=== PATIENT | male | born 1975 | race Caucasian/White ===

== ENCOUNTER 2021-06-15 09:49 | Emergency (ER) | payer OTHER, BC, SELFPAY ==
[2021-06-15 10:00] VITALS: BP 176/113; PULSE 76; RESP 14; TEMP 36.1; O2SAT 99
[2021-06-15] MEDS: TETANUS,DIPHTHERIA,AC PERTUSSIS ADULT (0.5 ML) BOOSTRIX IM (10:30)
--- NOTE | 2021-06-15 10:49 | ED.GENADULT ---
HPI - General Adult General Chief complaint: Wound/Laceration Stated complaint: Laceration Time Seen by Provider: 06/15/21 10:04 Source: patient Mode of arrival: ambulatory Limitations: no limitations History of Present Illness HPI narrative: Patient presents with chief complaint of laceration to the left thumb but he should stay prior to arrival at work on a can. He states he has not had a tetanus shot in 10 years. Patient denies any other symptoms or injuries. Related Data Home Medications Medication Instructions Recorded Confirmed gabapentin 300 mg PO TID 06/15/21 propranolol 10 mg PO Q12H 06/15/21 venlafaxine [Effexor XR] 75 mg PO DAILY 06/15/21 Allergies Allergy/AdvReac Type Severity Reaction Status Date / Time No Known Allergies Allergy Verified 06/15/21 10:02 Review of Systems Review of Systems: CONSTITUTIONAL: Denies fever, chills, or sweats. EYES: Denies visual changes, redness, or discharge. ENT: Denies rhinorrhea, congestion, sore throat, or otalgia. CARDIOVASCULAR: Denies chest pain, palpitations, or edema. RESPIRATORY: Denies cough or dyspnea. GASTROINTESTINAL: Denies abdominal pain, nausea, vomiting, or diarrhea. GENITOURINARY: Denies dysuria or hematuria. SKIN: Reports laceration denies rash or itching. MUSCULOSKELETAL: Denies back pain, joint pain, or myalgia. NEUROLOGIC: Denies headache, numbness, dizziness, or weakness. PSYCHIATRIC: Denies anxiety or depression. PMFSH Social History Social History Alcohol intake: current Exam Narrative: GENERAL: Well-appearing, well-nourished, and in no acute distress. HEAD: Normocephalic, atraumatic. EYES: PERRLA and EOMI. CHEST: Clear to auscultation. No respiratory distress. No wheezes rales or rhonchi HEART: Regular rate and rhythm. EXTREMITIES: Normal range of motion. No edema. SKIN: 2.5cm laceration to left thumb. Can't appreciate any foreign bodies. Warm, dry, no rash. NEURO: No focal deficits. Alert and oriented x3. PSYCH: Normal mood and affect. Course Vital Signs Vital signs: Vital Signs Temperature 96.9 F L 06/15/21 10:00 Pulse Rate 76 06/15/21 10:00 Respiratory Rate 14 06/15/21 10:00 Blood Pressure 176/113 H 06/15/21 10:00 Pulse Oximetry 99 06/15/21 10:00 Temperature 96.9 F L 06/15/21 10:00 Pulse Rate 76 06/15/21 10:00 Respiratory Rate 14 06/15/21 10:00 Blood Pressure 176/113 H 06/15/21 10:00 Pulse Oximetry 99 06/15/21 10:00 Procedures Laceration Laceration 1: Site: hand Side (If applicable): left Size (cm): 2.5 Description: linear Depth: simple, single layer Local Anesthetic: lidocaine 1% Amount of anesthesia used (mL): 1 Pre-repair: irrigated extensively ====== Skin Level ====== Skin layer closed with: nylon Size (cm): 4-0 Number of sutures: 3 Technique: simple, interrupted ====== Subcutaneous Layer ====== ====== Muscle Layer ====== ====== Tendon Layer ====== Dressing: Wound repair. Patient tolerated procedure well. Patient instructed on need for follow-up for suture removal. Medical Decision Making MDM Narrative Medical decision making narrative: There is no bony tenderness. Laceration repaired well. Patient blood pressure was elevated. States due to the laceration and having to have sutures. Patient notified. Patient does not have any headache, neurological deficit or cardiac pain. Patient instructed on the need for follow-up. Patient given wound care instructions. Patient instructed to go home and rest. Nursing did not obtain blood pressure rechecked prior to discharging the patient. Vital Signs Vital Signs: Vital Signs Temperature 96.9 F L 06/15/21 10:00 Pulse Rate 76 06/15/21 10:00 Respiratory Rate 14 06/15/21 10:00 Blood Pressure 176/113 H 06/15/21 10:00 Pulse Oximetry 99 06/15/21 10:00 Temperature 96.9 F L 06/15/21 10:00 Pulse Rate 76 0
== END 2021-06-15 10:40 | disposition home or self-care (01) ==
PROVIDERS: Emergency Provider Emergency Medicine; PCP Hospitalist
DX: S61.012A Laceration without foreign body of left thumb without damage to nail, initial encounter (principal); Z23 Encounter for immunization; W26.8XXA Contact with other sharp object(s), not elsewhere classified, initial encounter
CPT/HCPCS: 12001; 90471; 90715; 99282